=== PATIENT | female | born 1945 | race Caucasian/White ===

== ENCOUNTER 2017-07-02 19:05 | Emergency (ER) | payer OTHER, MEDICAID ==
[~2017-07-02] VITALS: Ht 121.9 cm; Wt 59.9 kg
[2017-07-02 19:10] VITALS: BP 159/95
[2017-07-02] MEDS: IBUPROFEN 800 MG TAB PO ONE (20:15)
[2017-07-02 20:52] VITALS: BP 148/87
== END 2017-07-02 20:58 | disposition home or self-care (01) ==
LOC: MED 19:05
DX: S09.90XA Unspecified injury of head, initial encounter (principal); I10 Essential (primary) hypertension; W01.0XXA Fall on same level from slipping, tripping and stumbling without subsequent striking against object, initial encounter; Y93.89 Activity, other specified; Y92.89 Other specified places as the place of occurrence of the external cause; Y99.8 Other external cause status
CPT/HCPCS: 70450; 99284

== ENCOUNTER 2017-10-21 12:34 | Emergency (ER) | payer OTHER, MEDICAID ==
[~2017-10-21] VITALS: Ht 157.5 cm; Wt 62.6 kg
[2017-10-21 12:55] VITALS: BP 168/102
--- NOTE | 2017-10-21 13:03 | NUR ---
EVALUATED BY DR. NIX.
--- NOTE | 2017-10-21 13:04 | NUR ---
PATIENT PRESENTS TO ED WITH THE CHIEF C/O COUGH . PT STATES COUGH STARTED 3 DAYS AGO. DENIES N/V/D; SKIN IS PINK/WARM/DRY; AAOX4 WITH EVEN AND STEADY GAIT; LUNGS CLEAR BL; HR EVEN AND REGULAR; PT DENIES ANY FEVER, CP, SOB, OR COUGH AT THIS TIME; PATIENT STATES PAIN OF 0/10 AT THIS TIME; VSS; PATIENT POSITIONED FOR COMFORT; HOB ELEVATED; BEDRAILS UP X2; BED DOWN. ER MD MADE AWARE OF PT STATUS.
[2017-10-21 13:09] VITALS: BP 135/97
--- NOTE | 2017-10-21 13:20 | NUR ---
Patient discharged with v/s stable. Written and verbal after care instructions given and explained. Patient alert, oriented and verbalized understanding of instructions. Ambulatory with steady gait. All questions addressed prior to discharge. ID band removed. Patient advised to follow up with PMD. Rx of PROMETHAZINE given. Patient educated on indication of medication including possible reaction and side effects. Opportunity to ask questions provided and answered. Needed document provided to pt.
== END 2017-10-21 13:20 | disposition home or self-care (01) ==
LOC: MED 12:34
DX: J06.9 Acute upper respiratory infection, unspecified (principal); I10 Essential (primary) hypertension
CPT/HCPCS: 99283